=== PATIENT | female | born 1985 ===

== ENCOUNTER 2018-11-12 20:30 | Emergency (ER) | payer MEDICAID, OTHER ==
[2018-11-12 20:30] VITALS: BMI 27.1
[2018-11-12] MEDS ORDERED: Sodium Chloride 0.9% 1,000 ML IV STA (21:34)
--- NOTE | 2018-11-12 21:40 | ED PDOC ---
HPI: Influenza Time Seen by Provider: 11/12/18 20:53 Chief Complaint: Fever Additional complaint(s):: 33 y/o F with hx of asthma , 37 weeks who presents with flu like symptoms. Pt began having sore throat yesterday and then subjective fever with chills, body aches and mild headache today. Her had similar symptoms last week but has improved. Denies diarrhea, dizziness, ear pain, N/V, diarrhea. She last took Tylenol at approximately 7:30pm today. She received Influenza vac cine this season. She had mild SOB earlier but feels better now. Further denies abdominal cramping and has felt baby moving regularly today. Denies dysuria, urinary frequency. Past Medical History Vital Signs: Last Vital Signs Temp 101.7 F H 11/12/18 20:36 Pulse 141 H 11/12/18 20:36 Resp 19 11/12/18 20:36 BP 124/68 11/12/18 20:36 Pulse Ox 96 11/12/18 20:36 - Medical History PMH: Asthma - Surgical History Surgical History: (x2) - Family History Family History: States: Unknown Family Hx - Immunization History Hx Tetanus Toxoid Vaccination: No Hx Influenza Vaccination: Yes (04/2015) - Home Medications Home Medications: Ambulatory Orders Medication Instructions Recorded Albuterol 0.083% [Albuterol 3 ml IH Q4 PRN 07/03/15 Sulfate 3 Ml] Fluticasone Propionate [Flonase] 2 spr INH DAILY #1 bottle 07/03/15 Montelukast Sodium [Singulair] 10 mg PO DAILY 07/03/15 Oseltamivir Phosphate [Tamiflu] 75 mg PO BID #9 capsule 11/13/18 - Allergies Allergies/Adverse Reactions: Allergies Allergy/AdvReac Type Severity Reaction Status Date / Time dogs Allergy Intermediate CONGESTION Uncoded 07/03/15 11:55 pollens Allergy Intermediate CONGESTION Uncoded 07/03/15 11:55 trees Allergy Intermediate CONGESTION Uncoded 07/03/15 11:55 cats hair Allergy RASH Uncoded 08/30/18 13:45 seafood Allergy RASH Uncoded 08/30/18 13:45 Physical Exam - Reviewed Nursing Documentation Reviewed: Yes Vital Signs Reviewed: Yes - Physical Exam Appears: Positive for: Uncomfortable ENT: Positive for: Normal ENT Inspection Cardiovascular/Chest: Positive for: Tachycardia Respiratory: Positive for: Normal Breath Sounds Medical Decision Making Medical Decision Making: CBC, CMP, blood culture x 2 Rapid Flu Rapid strep NS 1L IV x 1 URine dip, U/A Rapid flu and strep negative WBCs: 14K Urine dip: many bacteria, epithelial cells high, LE and nitrates negative, cloudy, WBCs 3K. 23:53: Pt c/o epigastric pain, T: 100.3F, patient feels that fever is coming back. + chills. + tenderness on palpation of epigastrium. Abdominal U/S ordered to evaluate for cholecystitis. VBG lactate. Tylenol 975mg PO x 1 US finding: Indication: Fever, chills. 37 weeks . Findings: Real-time ultrasound images were obtained. Unremarkable liver measuring 17.3 cm. Normal gallbladder. Gallbladder wall thickness of 1.1 mm. Nondilated common bile duct measuring 4.3 mm. Unremarkable right kidney measuring 11.3x5.8x1.7 cm. Mild right hydronephrosis. Impression: Mild left hydronephrosis. 04:22am: re-evaluated, T: 99.3; states that continues to have chills and feels like fever may be returning. Has been urinating well. HR 120s. Additional NS 500cc IV x 1, Tylenol 975mg PO x 1. 06:00am: re-evaluated: feeling better, HR 106 checked manually by me. Stable for d/c home with return instructions given. - Laboratory Results Result Diagrams: 11/12/18 22:21 11/12/18 22:21 - ECG O2 Sat by Pulse Oximetry: 96 Disposition - Clinical Impression Clinical Impression: Influenza - Patient ED Disposition Is Patient to be Admitted: No - Disposition Referrals: [facility] [Outside] [facility] [Outside] Disposition: Routine/Home Disposition Time: 06:27 Condition: STABLE Additional Instructions: Follow up with your primary care doctor within the next few days. Take Tamiflu as directed to help reduce the severity of your symptoms. Take Tylenol for fevers and body aches every 4 hours. Stay hydrated and get lots of rest. Return to ER if your symptoms worsen. Call your trust operations assistant to follow up re: your and childbirth. Prescriptions: Oseltamivir Phosphate [Tamiflu] 75 mg PO BID #9 capsule Instructions: Flu, Adult (DC) Forms: [facility] (Portuguese) Print Language: AFGHAN
[2018-11-12 21:58] LABS: SQUAMOUS EPITHIAL 8 /hpf (0-5); URINE BACTERIA MANY (<OCC); URINE BILIRUBIN NEGATIVE (NEGATIVE); URINE BLOOD NEGATIVE (NEGATIVE); URINE CLARITY CLOUDY (Clear); URINE COLOR YELLOW (YELLOW); URINE GLUCOSE (UA) NEG (NEGATIVE); URINE LEUKOCYTE ESTERASE NEG Leu/uL (Negative); URINE PROTEIN NEGATIVE (NEGATIVE); URINE UROBILINOGEN 0.2-1.0 mg/dL (0.2-1.0)
[2018-11-12 22:25] LABS: BASO % 0.2 % (0.0-2.0); HEMOGLOBIN 10.6 g/dL (12.0-16.0); LYMPH # 0.7 K/uL (1.0-4.3); LYMPH % 4.8 % (20.0-40.0); MEAN CELL VOLUME 92.1 fl (81.0-99.0); MEAN CORPUSCULAR HEMOGLOBIN 31.3 pg (27.0-31.0); MEAN CORPUSCULAR HGB CONC 33.9 g/dL (33.0-37.0); MEAN PLATELET VOLUME 7.8 fl (7.2-11.7); MONO # 1.3 K/uL (0.0-0.8); MONO % 8.8 % (0.0-10.0); NEUT # 12.5 K/uL (1.8-7.0); NEUT % 86.2 % (50.0-75.0); PLATELET COUNT 185 K/uL (130-400); RED CELL DISTRIBUTION WIDTH 14.3 % (11.5-14.5); WHITE BLOOD COUNT 14.4 K/uL (4.8-10.8)
[2018-11-12 22:37] LABS: ALBUMIN 3.2 g/dL (3.5-5.0); ALT/SGPT 26 U/L (9-52); AST/SGOT 21 U/L (14-36); BLOOD UREA NITROGEN 4 mg/dl (7-17); CALCIUM 8.7 mg/dL (8.4-10.2); GFR NON-AFRICAN AMERICAN > 60
[2018-11-12 23:30] LABS: BANDS 2 % (0-2); LYMPHOCYTE 8 % (20-50); MONOCYTE 5 % (0-10); NEUTROPHIL 85 % (42-75); PLATELET ESTIMATE NORMAL (NORMAL); TOTAL CELLS COUNTED 100
[2018-11-12 23:31] LABS: HYPOCHROMIC SLIGHT
[2018-11-13 00:27] LABS: VENOUS BLOOD GAS BASE EXCESS -0.6 mmol/L (0.0-2.0); VENOUS BLOOD GAS PCO2 35 mmHg (40-60); VENOUS BLOOD GAS PO2 27 mm/Hg (30-55); VENOUS BLOOD PH 7.43 (7.32-7.43)
[2018-11-13 03:24] LABS: LIPASE 88 U/L (23-300)
[2018-11-13 04:44] VITALS: RESP 16
[2018-11-13] MEDS ORDERED: Sodium Chloride 0.9% 500 ML IV STA (04:46)
[2018-11-13 06:01] VITALS: BP 114/76; PULSE 111; TEMP 98.8
[2018-11-13 06:28] VITALS: O2SAT 96
--- NOTE | 2018-11-13 09:17 | US ---
Date of service: 11/13/2018 HISTORY: evaluate for cholecystitis, 37 wks preg COMPARISON: None. TECHNIQUE: Grayscale imaging was performed. FINDINGS: LIVER: Measures 17.3 cm in length. Normal echogenicity of the liver parenchyma. No mass. No intrahepatic bile duct dilatation. GALLBLADDER: There are no gallstones, wall thickening or pericholecystic fluid. The sonographic Renae's sign is negative. COMMON BILE DUCT: Measures 4.3 mm. No stones. No dilatation. PANCREAS: Unremarkable as visualized. No mass. No ductal dilatation. RIGHT KIDNEY: Measures 11.3 cm in length. Normal echogenicity. There is mild hydronephrosis, physiologic. No calculus. AORTA: No aneurysmal dilatation. IVC: Unremarkable. OTHER FINDINGS: None . IMPRESSION: Mild right hydronephrosis, physiologic. No cholelithiasis or biliary dilatation.
== END 2018-11-13 05:35 | disposition home or self-care (01) ==
LOC: H.ER 20:30
DX: O26.893 Other specified pregnancy related conditions, third trimester (principal); O99.513 Diseases of the respiratory system complicating pregnancy, third trimester; J45.909 Unspecified asthma, uncomplicated; Z3A.37 37 weeks gestation of pregnancy; Z23 Encounter for immunization
CPT/HCPCS: 76705; 80053; 81003; 82803; 83690; 85025; 87040; 87070; 87430; 87804; 96361; 96374; 99285; J7030; J7040